=== PATIENT | female | born 1960 | race Caucasian/White ===

== ENCOUNTER 2019-10-13 15:26 | Outpatient (CLI) | payer BC, SELFPAY ==
--- NOTE | ~2019-10-13 | CT_ITS ---
EXAMINATION: CT chest wo con DATE: 10/13/2019 15:52 INDICATION: History of pulmonary embolism. Lung nodules. TECHNIQUE: Computed tomography (CT) of the chest was performed without intravenous contrast. The dose -length product was 203.45 mGy-cm. Automated exposure control and iterative reconstruction technique were employed. COMPARISON: CT dated 11/21/2018 FINDINGS: Heart size normal. No significant pleural or pericardial effusion. There is atherosclerosis . Mildly enlarged mediastinal lymph node measuring 9 mm, image 45. There is evidence for chronic gran ulomatous disease. There is bronchiectasis of the right middle and left upper lobes at the lingula. S table 5-6 mm fissural nodule on the right. 5 mm right upper lobe nodule, image 60, unchanged. There a re additional smaller nodules in the right upper and middle lobes which are not significantly changed . There are multiple healed rib fractures with adjacent pleural thickening/nodularity, likely scarrin g/pleural thickening. Stable coarse interstitial changes of the mid and lower lungs IMPRESSION: 1. Stable chest. No significant interval change. Stable pulmonary nodules measuring 6 mm or less, lik loni benign. Stable interstitial changes of the mid and lower lungs, likely scarring. Follow-up low do se CT chest in 12 months recommended. Reviewed, dictated and finalized at location A. IMPRESSION: 1. Stable chest. No significant interval change. Stable pulmonary nodules measu ring 6 mm or less, likely benign. Stable interstitial changes of the mid and lo wer lungs, likely scarring. Follow-up low dose CT chest in 12 months [facility]
== END 2019-10-13 15:27 ==
PROVIDERS: PCP Family Medicine Adolescent Medicine; Visit Provider Family Medicine Adolescent Medicine
DX: I26.99 Other pulmonary embolism without acute cor pulmonale (principal); R91.8 Other nonspecific abnormal finding of lung field
CPT/HCPCS: 71250

== ENCOUNTER → 2020-10-11 16:21 | Outpatient (CLI) | payer BC, SELFPAY ==
--- NOTE | ~2020-10-11 | XR_ITS ---
EXAMINATION: XR elbow RT min 3V DATE: 10/11/2020 16:39 INDICATION: Right elbow pain and catching. TECHNIQUE: Anteroposterior, two oblique and lateral views of the right elbow were obtained. COMPARISON: None. FINDINGS: There is a lucent lesion at the capitellum with loss of the well-defined linear cortical margin at th e articular surface. On the lateral projection with the elbow flexed there appears to be a small eber centic bone fragment projecting over the radiocapitellar joint line. Appearance suspicious for osteoc hondral lesion with displaced osteochondral fragment. No other suspected fractures identified. Again seen are several degenerative loose osteochondral bodies at both the anterior and posterior recess of the right elbow. No right elbow joint effusion. Osteoarthritis with nonuniform joint space narrowing which is of moderate severity at the ulnotrochlear articulation. IMPRESSION: 1. Appearance suggestive of a displaced capitellar osteochondral fragment. Could consider either CT o r MRI for more definitive determination as clinically indicated. 2. 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 Reviewed, dictated and finalized at location A. IMPRESSION: 1. Appearance suggestive of a displaced capitellar osteochondral fragment. Coul d consider either CT or MRI for more definitive determination as clinically ind icated. 2. 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
== END ==
PROVIDERS: PCP Family Medicine Adolescent Medicine; Visit Provider Family Medicine Adolescent Medicine
DX: M19.021 Primary osteoarthritis, right elbow (principal)
CPT/HCPCS: 73080

== ENCOUNTER → 2020-12-22 18:21 | Outpatient (CLI) | payer BC, SELFPAY ==
--- NOTE | ~2020-12-22 | XR_ITS ---
XR tibia fibula LT 2V DATE: 12/22/2020 19:05 INDICATION: Left mid to lower fibular pain TECHNIQUE: AP and lateral views COMPARISON: None FINDINGS: There are deformities of the distal tibial and fibular shafts and diametaphyseal areas, lik loni due to old healed fractures. No recent fracture or dislocation or apparent active bone destruction is noted. IMPRESSION: Probable fracture deformities of the distal tibia and fibula Reviewed, dictated and finalized at location A.
== END ==
PROVIDERS: PCP Family Medicine Adolescent Medicine; Visit Provider Family Medicine Adolescent Medicine
DX: M79.662 Pain in left lower leg (principal)
CPT/HCPCS: 73590

== ENCOUNTER 2021-05-02 15:30 | Emergency (ER) | payer BC, SELFPAY ==
[2021-05-02 15:36] VITALS: BP 136/76; PULSE 107; RESP 16; TEMP 37.5; O2SAT 98
--- NOTE | 2021-05-02 15:38 | ED.GENADULT ---
HPI - General Adult General Chief complaint: Upper Respiratory Infection Stated complaint: Sore throat Time Seen by Provider: 05/02/21 15:38 Source: patient and RN notes reviewed Mode of arrival: ambulatory History of Present Illness HPI narrative: 60-year-old female presented for complaint of left lower jaw pain and sore throat for about 3 days. She endorses occasional cough nonproductive. She denies associated sinus congestion, shortness of breath, wheezing, chest pain, nausea, vomiting, diarrhea, fever or chills. History of root canal and broken crown on the left molar. History of RA. Related Data Allergies Allergy/AdvReac Type Severity Reaction Status Date / Time No Known Allergies Allergy Verified 06/14/20 15:45 Review of Systems Review of Systems: CONSTITUTIONAL: Denies body aches, fever, chills ENT: Reports sore throat, Denies rhinorrhea, congestion, or otalgia. Denies dental pain stating had previous root canal CARDIOVASCULAR: Denies chest pain, palpitations RESPIRATORY: Reports cough denies dyspnea. SKIN: Denies rash, itching, or wounds. MUSCULOSKELETAL: Denies myalgia. NEUROLOGIC: Denies headache, numbness, tingling, or weakness. [facility] Past Medical History Medical History Arthritis Pulmonary embolism Family History Family History Father Lymphoma Sibling Breast cancer Social History Social History Smoking status: Never smoker Alcohol intake: never Substance use type: does not use Additional occupation/education comments: Customer Service Gender identity (if verbalized by the patient): Female Comments At time of signature, I have reviewed and agree with nursing past medical, surgical, social and family history unless otherwise noted. Please see nursing chart for further information. There is no relevant family history pertinent to the presenting complaint Exam Narrative: GENERAL: Appears in pain; Well-appearing, well-nourished, and in no acute distress. HEAD: Normocephalic, atraumatic. EYES: EOMI. No redness or drainage. Conjunctivae normal. ENT: Mucous membranes pink and moist. TMs with scarring bilaterally. Throat erythematous. Uvula midline. Left molar #17 with broken crown and mild swelling surrounding the tooth NECK: Normal AROM. Supple. left submandibular lymphadenopathy. CHEST: No respiratory distress. Clear to auscultation. HEART: Regular rate and rhythm. No murmur appreciated. ABDOMEN: Soft, nontender, nondistended, normal active bowel sounds. SKIN: Warm, dry, no rash. Normal skin turgor. NEURO: No focal deficits. Alert and oriented x3. Course Course Emergency Course: covid and strep negative Patient is aware of diagnosis, understands and agrees to treatment plan. Anticipatory guidance given. Patient agrees to follow-up as directed and is aware of reasons to seek care at the emergency department. Portions of this record may have been created with voice recognition software Level of Care: Express Care Visit Vital Signs Vital signs: Vital Signs Temperature 99.5 F 05/02/21 15:36 Pulse Rate 107 H 05/02/21 15:36 Respiratory Rate 16 05/02/21 15:36 Blood Pressure 136/76 05/02/21 15:36 Pulse Oximetry 98 05/02/21 15:36 Temperature 99.5 F 05/02/21 15:36 Pulse Rate 107 H 05/02/21 15:36 Respiratory Rate 16 05/02/21 15:36 Blood Pressure 136/76 05/02/21 15:36 Pulse Oximetry 98 05/02/21 15:36 Medical Decision Making Differential Diagnosis Differential Diagnosis: DDx: covid, viral infection, dentalgia, dental fracture, dental caries, periapical abscess, lymphadenopathy, strep, tonsillar abscess, pharyngitis, OM Vital Signs Vital Signs: Vital Signs Temperature 99.5 F 05/02/21 15:36 Pulse Rate 107 H 05/02/21 15:36 Respiratory Rate 16 05/02/21 15:36 Blood Pr
== END 2021-05-02 16:27 | disposition home or self-care (01) ==
PROVIDERS: Emergency Provider Nurse Practitioner Family; PCP Family Medicine Adolescent Medicine
DX: K04.7 Periapical abscess without sinus (principal); Z20.822 Contact with and (suspected) exposure to COVID-19; M19.90 Unspecified osteoarthritis, unspecified site; Z86.711 Personal history of pulmonary embolism; M06.9 Rheumatoid arthritis, unspecified
CPT/HCPCS: 87081; 87426; 87880; 99213; C9803; G0463

== ENCOUNTER → 2021-12-14 14:59 | Outpatient (CLI) | payer BC, SELFPAY ==
--- NOTE | ~2021-12-14 | XR_ITS ---
EXAMINATION: XR hand LT min 3V, XR hand RT min 3V, XR wrist LT 2V, XR wrist RT 2V DATE: 12/14/2021 16:12 INDICATION: Rheumatoid arthritis TECHNIQUE: 1. Posteroanterior and lateral views of the left wrist were obtained. 2. Dorsal palmar, oblique and lateral views of the left hand were obtained. 3. Posteroanterior and lateral views of the right wrist were obtained. 4. Dorsal palmar, oblique and lateral views of the right hand were obtained. COMPARISON: None. FINDINGS: Old healed fracture of the distal right radial diaphysis with volar plate and screw fixation. Normal alignment at the bilateral hands and wrists. Polyarticular osteoarthritis at the bilateral hands and wrists contrast by nonuniform joint space narrowing or small marginal osteophytes. This is severe at the left first carpometacarpal joint, moderate severity at the left wrist and multiple bilateral dist al interphalangeal joints and mild at the right first carpal metacarpal, bilateral distal radioulnar, triscaphe right metacarpophalangeal joints and remaining predominantly proximal interphalangeal join ts. No erosions identified to suggest an inflammatory arthritis. Small heterotopic ossicle next along the left extensor carpi ulnaris groove of the distal ulna. Soft tissues are unremarkable. IMPRESSION: 1. Polyarticular osteoarthritis at the bilateral hands and wrists, severe at the left first carpometa carpal joint and otherwise mild to moderate . No erosions to suggest an inflammatory arthritis. 2. Old healed right radial diaphyseal fracture with plate and screw fixation. Reviewed, dictated and finalized at location A. IMPRESSION: 1. Polyarticular osteoarthritis at the bilateral hands and wrists, severe at th e left first carpometacarpal joint and otherwise mild to moderate . No erosions to suggest an inflammatory arthritis. 2. Old healed right radial diaphyseal fracture with plate and screw fixation. IMPRESSION: 1. Polyarticular osteoarthritis at the bilateral hands and wrists, severe at th e left first carpometacarpal joint and otherwise mild to moderate . No erosions to suggest an inflammatory arthritis. 2. Old healed right radial diaphyseal fracture with plate and screw fixation. IMPRESSION: 1. Polyarticular osteoarthritis at the bilateral hands and wrists, severe at th e left first carpometacarpal joint and otherwise mild to moderate . No erosions to suggest an inflammatory arthritis. 2. Old healed right radial diaphyseal fracture with plate and screw fixation.
--- NOTE | ~2021-12-14 | XR_ITS ---
EXAMINATION: XR elbow RT 2V DATE: 12/14/2021 16:12 INDICATION: Rheumatoid arthritis TECHNIQUE: Anteroposterior and lateral views of the right elbow were obtained. COMPARISON: 12/05/2015 and 10/11/2020 FINDINGS: Alignment is normal. No fracture or joint effusion. 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 Median sternotomy is an irregular cortical contour to the articular surface of the capitellum suggesting an old displa curry are collapsed osteochondral lesion. Soft tissues are unremarkable. IMPRESSION: 1. No significant interval change in moderate osteoarthritis at the right elbow potentially secondary to chronic collapse or displaced capitellar osteochondral lesion. Reviewed, dictated and finalized at location A. IMPRESSION: 1. No significant interval change in moderate osteoarthritis at the right elbow potentially secondary to chronic collapse or displaced capitellar osteochondra l lesion.
--- NOTE | ~2021-12-14 | XR_ITS ---
EXAMINATION: XR foot LT min 3V, XR foot RT min 3V DATE: 12/14/2021 16:12 INDICATION: Rheumatoid arthritis TECHNIQUE: 1. Dorsoplantar, two oblique and lateral views of the left foot were obtained. 2. Dorsoplantar, two oblique and lateral views of the right foot were obtained. COMPARISON: Left tibia/fibular radiographs dated 01/01/2021 and right ankle radiographs dated 05/30/19 16 FINDINGS: Again seen are old healed fractures of the distal left tibia and fibula. Unchanged pin fixation exten ding across the right talus the neck of which appears shortened suggests this may be for fixation of an old fracture. There is fusion across the right subtalar joint. No acute fractures identified. Righ t hallux valgus. Polyarticular osteoarthritis characterized by nonuniform joint space narrowing and/o r marginal osteophytes at the bilateral feet and ankles. This of moderate severity at the right tibio talar, right talonavicular, bilateral first metatarsophalangeal and several of the bilateral tarsomet atarsal joints. Mild osteoarthritis at the remaining joints the mid and forefeet. No erosions to sugg est inflammatory arthritis. Moderate sized left plantar calcaneal spur. IMPRESSION: 1. Moderate polyarticular osteoarthritis at the bilateral feet and ankles. No erosions to suggest inf lammatory arthritis such as rheumatoid. 2. Unchanged old postoperative and posttreatment changes as detailed above. Reviewed, dictated and finalized at location A. IMPRESSION: 1. Moderate polyarticular osteoarthritis at the bilateral feet and ankles. No e rosions to suggest inflammatory arthritis such as rheumatoid. 2. Unchanged old postoperative and posttreatment changes as detailed above.
--- NOTE | ~2021-12-14 | XR_ITS ---
EXAMINATION: XR elbow LT 2V DATE: 12/14/2021 16:12 INDICATION: Rheumatoid arthritis TECHNIQUE: Anteroposterior, two oblique and lateral views of the left elbow were obtained. COMPARISON: None. FINDINGS: Alignment is normal. No fracture or joint effusion. Joint spaces are normal. No erosions to suggest a n inflammatory arthritis. Soft tissues are unremarkable. IMPRESSION: 1. Negative left elbow radiographs. Reviewed, dictated and finalized at location A.
== END ==
PROVIDERS: PCP Family Medicine Adolescent Medicine; Visit Provider Internal Medicine Rheumatology
DX: M35.00 Sjogren syndrome, unspecified (principal); M06.9 Rheumatoid arthritis, unspecified; M20.11 Hallux valgus (acquired), right foot; M19.072 Primary osteoarthritis, left ankle and foot; M19.071 Primary osteoarthritis, right ankle and foot; M18.0 Bilateral primary osteoarthritis of first carpometacarpal joints; M19.042 Primary osteoarthritis, left hand; M19.041 Primary osteoarthritis, right hand; M19.021 Primary osteoarthritis, right elbow; M24.021 Loose body in right elbow; M19.032 Primary osteoarthritis, left wrist; M19.031 Primary osteoarthritis, right wrist
CPT/HCPCS: 73070; 73100; 73130; 73630

== ENCOUNTER → 2022-09-26 14:44 | Outpatient (CLI) | payer BC, SELFPAY ==
--- NOTE | ~2022-09-26 | XR_ITS ---
EXAMINATION: XR foot RT 2V INDICATION: Swelling at the base of the fifth metatarsal TECHNIQUE: Two views of the right foot are obtained. COMPARISON: 12/14/2021 FINDINGS: Again seen is prior surgical change in the talus. There is moderate polyarticular arthritis without significant change since the comparison examination. There is soft tissue swelling near the base of the fifth metatarsal. No definite fracture is identified. IMPRESSION: 1. Soft tissue swelling near the base of the fifth metatarsal without acute osseous abnormality ident ified. Reviewed, dictated and finalized at location B. IMPRESSION: 1. Soft tissue swelling near the base of the fifth metatarsal without acute oss eous abnormality identified.
== END ==
PROVIDERS: PCP Family Medicine Adolescent Medicine; Visit Provider Family Medicine Adolescent Medicine
DX: M25.474 Effusion, right foot (principal)
CPT/HCPCS: 73620

== ENCOUNTER 2023-01-12 16:20 | Emergency (ER) | payer BC, SELFPAY ==
--- NOTE | 2023-01-12 16:24 | ED.BACK ---
HPI - Back Pain/Injury General Chief Complaint: Back Pain/Injury Stated Complaint: Back pain Time Seen by Provider: 01/12/23 16:31 Source: patient, RN notes reviewed and old records reviewed Mode of arrival: ambulatory Limitations: no limitations History of Present Illness HPI Narrative: 62-year-old female presents to the [facility] with right flank pain symptoms started today. Patient denies any abdominal pain. No chest pain. Denies urinary symptoms, no frequency urgency or burning. Denies fevers. Changing positions, twisting, bending does not make the pain better or worse. States the pain is pretty constant. Denies any injury. Denies any heavy pushing pulling or lifting. Patient denies anything that makes it better or worse. Has tried heat and cooled to the area, no relief. Denies any numbness or tingling in extremities. Denies any loss retention of bowel or bladder. No midline tenderness. Walks with a normal gait. No saddle anesthesia MD elicited complaint: back pain Onset (ago): hour(s) Treatments prior to arrival: cold therapy and heat therapy Related Data Allergies Allergy/AdvReac Type Severity Reaction Status Date / Time No Known Allergies Allergy Verified 01/12/23 16:33 Review of Systems Review of Systems: All systems reviewed & are unremarkable except as noted in HPI and below Constitutional: Constitutional: Reports no additional constitutional complaints Eyes: Eyes: Reports no additional eye complaints ENT: Reports system reviewed and no additional complaints, except as documented Cardiovascular: Cardiovascular: Reports no additional cardiovascular complaints, Denies chest pain and Denies dyspnea Respiratory: Respiratory: Reports no additional respiratory complaints, Denies chest congestion, Denies cough and Denies dyspnea Gastrointestinal: Gastrointestinal: Reports no additional gastrointestinal complaints, Denies abdominal pain, Denies nausea and Denies vomiting Musculoskeletal: Musculoskeletal: Reports as per HPI and Denies numbness Integumentary/Breasts: Skin/Breast: Reports system reviewed and no additional complaints, except as docu Neurologic: Reports system reviewed and no additional complaints, except as documented Psychiatric: Psychiatric: Reports no additional psychiatric complaints Allergic/Immunologic: Allergic/Immunologic: Reports no additional allergic/immunologic complaints [facility] Past Medical History Medical History (Updated 01/12/23 @ 16:43 by Socorro Hamm, [employer]GER) Hx pulmonary embolism 12/04 Pulmonary embolism 12/04 Family History Family History Father Lymphoma Sibling Breast cancer Mother Cerebrovascular accident Social History Social History Smoking status: Never smoker Second hand tobacco smoke exposure: No Alcohol intake: never Substance use: never Substance use type: does not use Lack of Transportation: No Lack of Food: Never True Current Housing: I Have Housing Concerned About Future Housing: No Difficulty Paying Gas/Electric Bills: Decline to Answer Difficulty Paying for Meds: No Currently Unemployed: No Education: Associate Degree Difficulty w/ Childcare or Family Care: No Living arrangements: alone Occupation/Education: occupation Additional occupation/education comments: Customer Service Gender identity (if verbalized by the patient): Female Sexual Orientation (if Verbalized by the Patient): Straight or Heterosexual Spiritual care concerns: No Agree to blood products: Yes Comments At the time of my signature, I reviewed and agree with the nursing past medical, surgical, social, and family history. There is no relevant family history pertinent to the patient complaint. Exam Const: General: cooperative, healthy appearing, comfortable, no acute distress, well developed, alert and well nourished Nutr
[2023-01-12 16:32] VITALS: BP 173/95; PULSE 98; RESP 16; TEMP 36.6; O2SAT 98
== END 2023-01-12 16:46 | disposition home or self-care (01) ==
PROVIDERS: Emergency Provider Nurse Practitioner; PCP Family Medicine Adolescent Medicine
DX: R10.9 Unspecified abdominal pain (principal); Z86.711 Personal history of pulmonary embolism
CPT/HCPCS: 81003; 87086; 99213; G0463

== ENCOUNTER 2023-01-14 02:05 | Emergency (ER) | payer BC, SELFPAY ==
--- NOTE | ~2023-01-14 | CT_ITS ---
EXAMINATION: CT abdomen pelvis w con DATE: 01/14/2023 03:30 INDICATION: Right flank pain. TECHNIQUE: Computed tomography (CT) of the abdomen and pelvis was performed with 100 mL Omnipaque 350 intravenous contrast. Automated exposure control and iterative reconstruction technique were employe d. The dose-length product was 338.35 mGy-cm. COMPARISON: CT abdomen and pelvis 03/11/2013 FINDINGS: The visualized portions of the lung bases demonstrate mild atelectasis and chronic lung dis ease. No pleural effusion. The heart size is normal. No pericardial effusion. The liver, gallbladder, spleen, pancreas, adrenal glands, and kidneys are normal. There are no dilated loops of bowel. The a ppendix is normal. There are no pathologically enlarged lymph nodes. Aortic atherosclerosis is noted. There is no free intraperitoneal fluid. There is internal fixation of right femur. There is mild lum bar spondylosis. IMPRESSION: 1. No etiology for the patient's symptoms. Reviewed, dictated and finalized at location E.
[2023-01-14 02:11] VITALS: BP 184/105; PULSE 114; RESP 19; TEMP 36.3; O2SAT 96
--- NOTE | 2023-01-14 02:42 | ED.GENADULT ---
HPI - General Adult General Chief complaint: Back Pain/Injury <DANIELA Marroquin Last Filed: 01/14/23 02:48> Stated complaint: Right flank pain/right back pain <DANIELA Marroquin Last Filed: 01/14/23 02:48> Time Seen by Provider: 01/14/23 02:36 <DANIELA Marroquin Last Filed: 01/14/23 02:48> Source: patient <DANIELA Marroquin Last Filed: 01/14/23 02:48> Mode of arrival: ambulatory <DANIELA Marroquin Last Filed: 01/14/23 02:48> Limitations: no limitations <DANIELA Marroquin Last Filed: 01/14/23 02:48> History of Present Illness HPI narrative: This is a 62-year-old female who presents to the ED with chief complaint of right flank pain for the past couple of days. She was seen at urgent care yesterday and was told she had a bloody urinalysis and that she may need CT scan for kidney stones but patient wanted to try a muscle relaxer for possible musculoskeletal pain first. She reports the pain is progressed and is now an 8 out of 10 in the right flank. States is hard to get in a comfortable position. She reports increased urinary output but she has been drinking lots of water. Denies hematuria or dysuria. Endorses 1 episode of vomiting. Denies fevers, chills, problems with bowel movements, chest pain, shortness of breath, cough. <DANIELA Marroquin Last Filed: 01/14/23 02:48> Related Data Allergies/adverse reactions: Allergies Allergy/AdvReac Type Severity Reaction Status Date / Time No Known Allergies Allergy Verified 01/14/23 02:15 <DANIELA Marroquin Last Filed: 01/14/23 02:48> Review of Systems Review of Systems: All systems as dictated in HPI <DANIELA Marroquin Last Filed: 01/14/23 02:48> [facility] Past Medical History Medical History: Medical History (Updated 01/14/23 @ 02:47 by Diogenes Casarez PA-C) Hx pulmonary embolism 12/04 Pulmonary embolism 12/04 <Diogenes Casarez PA-C - Last Filed: 01/14/23 02:48> Family History Family History: Family History Father Lymphoma Sibling Breast cancer Mother Cerebrovascular accident <Diogenes Casarez PA-C - Last Filed: 01/14/23 02:48> Social History Social History: Social History Smoking status: Never smoker Second hand tobacco smoke exposure: No Alcohol intake: never Substance use: never Substance use type: does not use Lack of Transportation: No Lack of Food: Never True Current Housing: I Have Housing Concerned About Future Housing: No Difficulty Paying Gas/Electric Bills: Decline to Answer Difficulty Paying for Meds: No Currently Unemployed: No Education: Associate Degree Difficulty w/ Childcare or Family Care: No Living arrangements: alone Occupation/Education: occupation Additional occupation/education comments: Customer Service Gender identity (if verbalized by the patient): Female Sexual Orientation (if Verbalized by the Patient): Straight or Heterosexual Spiritual care concerns: No Agree to blood products: Yes <Diogenes Casarez PA-C - Last Filed: 01/14/23 02:48> Exam Narrative: GENERAL: Appears in renal colic HEAD: Normocephalic, atraumatic. EYES: PERRLA and EOMI. ENT: Nares clear, no rhinorrhea or epistaxis. Mucous membranes moist. Oropharynx without tonsillar hypertrophy exudate or other lesions. NECK: Supple. No adenopathy or masses. CHEST: No respiratory distress. Clear to auscultation. No wheezes rales or rhonchi HEART: Regular rate and rhythm. No murmur heard. Normal peripheral pulses. ABDOMEN: Significant right flank tenderness. Negative left flank tenderness. Soft, otherwise nontender, nondistended, normal active bowel sounds. MSK: Normal range of motion. No edema. SKIN: Warm, dry, no rash. NEURO: Alert and oriented x3. No focal deficits. PSYCH: Normal mood and affect. <Diogenes Casarez
[2023-01-14 02:44] VITALS: BP 167/94; PULSE 89; RESP 16; O2SAT 97
[2023-01-14] MEDS: MORPHINE SULFATE (*CRX) 4 MG/ML INJ IV PUSH ×2 (02:48→03:58)
[2023-01-14] MEDS: ONDANSETRON INJ 4 MG/2 ML VIAL IV PUSH (02:48)
[2023-01-14 02:52] LABS: Basophils Percent Auto 0.5 % (0.2-1.2); Eosinophils Absolute Auto 0.1 K/mm3 (0-0.3); Eosinophils Percent Auto 1.3 % (0-4.4); Hemoglobin 15.5 g/dL (12.0-15.0); Immature Granulocyte Absolute 0.04 K/mm3 (0.00-0.031); Immature Granulocyte Percent A 0.5 % (0-0.5); Lymphocytes Absolute Auto 1.78 K/mm3 (0.9-3.2); Lymphocytes Percent Auto 22.7 % (18.3-44.2); Mean Corpuscular Hemoglobin 29.6 pg (26-34); Mean Corpuscular Volume 89.7 fl (80-100); Mean Platelet Volume 8.7 fl (7.4-10.4); Monocytes Absolute Auto 0.9 K/mm3 (0.1-0.6); Monocytes Percent Auto 10.8 % (2.6-8.5); Neutrophils Percent Auto 64.2 % (45.5-73.1); Platelet Count Result 273 k/mm3 (150-375); Red Blood Count 5.24 M/mm3 (4.2-5.4); Red Cell Distribution Width 12.6 % (11.5-14.5); White Blood Count 7.9 K/mm3 (4.5-10.0)
[2023-01-14 03:04] LABS: Alanine Aminotransferase 35 U/L (6-35); Albumin Level 4.9 g/dL (3.5-5.1); Alkaline Phosphatase 80 U/L (38-126); Anion Gap 7 mmol/L (8-16); Appearance Urine Clear (Clear); Aspartate Amino Transferase 32 U/L (14-36); Bacteria Urine None Seen /hpf; Bilirubin Urine Negative (Negative); Bilirubin,Total 0.8 mg/dL (0.2-1.3); Blood Urea Nitrogen 15 mg/dL (7-17); Blood Urine 2+ (Negative); Calcium 9.3 mg/dL (8.4-10.2); Carbon Dioxide 27 mmol/L (22-30); Chloride 101 mmol/L (98-107); Color Urine Yellow (Yellow); Estimated CRCL calculation 67 ml/min; Estimated Glomerular Filt Rate > 60; Glucose 139 mg/dL (65-110); Glucose Urine UA Negative (Negative); Ketones Urine Negative (Negative); Leukocyte Esterase Ur 1+ LEU/UL (Negative); Lipase 174 U/L (23-300); Nitrate Urine Negative (Negative); Potassium 4.1 mmol/L (3.4-5.0); Protein Urine Negative (Negative); RBC Urine 0-2 /hpf (0-2); Sodium 135 mmol/L (137-145); Specific Grav Ur 1.016 (1.001-1.035); Squamous Epithelial Cell Urine None seen /hpf (Few); Urobilinogen Urine 0.2 mg/dL (<2.0); pH Urine 5.5 (5.0-9.0)
[2023-01-14 03:23] LABS: Add Urine Microscopic? YES
[2023-01-14 03:35] VITALS: BP 156/89; PULSE 86; RESP 16; O2SAT 96
[2023-01-14 04:59] VITALS: PULSE 79; RESP 14; O2SAT 95
[2023-01-14] MEDS: LIDOCAINE 5% PATCH 1 PATCH TRANSDERM (05:38)
[2023-01-14] MEDS: KETOROLAC 30 MG/ML VIAL (*BKC) IV PUSH (05:38)
[2023-01-14 05:43] VITALS: BP 155/91; PULSE 72; RESP 18; O2SAT 96
[2023-01-14 06:49] VITALS: BP 128/77; PULSE 71; RESP 16; O2SAT 95
== END 2023-01-14 06:49 | disposition home or self-care (01) ==
PROVIDERS: Physician Assistant; Emergency Provider Emergency Medicine; PCP Family Medicine Adolescent Medicine
DX: R10.9 Unspecified abdominal pain (principal); M54.9 Dorsalgia, unspecified
CPT/HCPCS: 36415; 74177; 80053; 81001; 83690; 85025; 87086; 87088; 96374; 96375; 96376; 99284; A9270; J1885; J2270; J2405; Q9967

== ENCOUNTER → 2023-01-17 11:38 | Outpatient (CLI) | payer BC, SELFPAY ==
--- NOTE | ~2023-01-17 | CT_ITS ---
EXAMINATION:CT diagnostic chest wo con DATE: 01/17/2023 12:05 INDICATION: Other nonspecific abnormal finding in lung field. TECHNIQUE: Computed tomography (CT) of the chest was performed without intravenous contrast. Automate d exposure control and iterative reconstruction technique were employed. The dose-length product (DLP ) was 211.98 mGy-cm. COMPARISON: Chest CT 10/13/2019 FINDINGS: There is mild scarring at the lung apices. Calcified right lung nodules are consistent with old granulomatous disease. There is mild bronchiectasis in the inferior lungs. There are is chronic septal thickening in the lungs with a lower lung predominance and right-sided predominance. No honeyc ombing. There are a few stable nodules in right lung measuring up to 5 mm. No pleural effusion. The h eart size is normal. No pericardial effusion. There is diffuse hepatic steatosis. There is chronic an terior wedging of multiple thoracic vertebral bodies. There is moderate thoracic spondylosis. There a re old healed right rib fractures. IMPRESSION: 1. Stable pulmonary nodules, likely benign. 2. Mild chronic lung disease. Reviewed, dictated and finalized at location E.
== END ==
PROVIDERS: PCP Family Medicine Adolescent Medicine; Visit Provider Nurse Practitioner Family
DX: R91.8 Other nonspecific abnormal finding of lung field (principal); J98.4 Other disorders of lung
CPT/HCPCS: 71250

== ENCOUNTER 2024-05-14 14:21 | Outpatient (CLI) | payer MEDICARE, SELFPAY | END 2024-05-14 14:22 | disposition home or self-care (01) | LOC: MICIMG 14:23 | PROVIDERS: PCP Family Medicine; Visit Provider Family Medicine | DX: S22.41XS Multiple fractures of ribs, right side, sequela (principal); X58.XXXS Exposure to other specified factors, sequela; M54.6 Pain in thoracic spine | CPT/HCPCS: 71111; 72072 ==

== ENCOUNTER 2024-08-18 21:42 | Emergency (ER) | payer MEDICARE, SELFPAY ==
--- NOTE | ~2024-08-18 | XR_ITS ---
XR hand LT min 3V Ordering provider: Gema Main MD History: . fall; open lacs to palm side of hand . Comparison: None. FINDINGS: BONES: No acute fracture or dislocation. JOINT SPACES: Narrowing of the proximal and distal interphalangeal joints. Osteoarthritic changes of the first carpometacarpal joint. Narrowing of the radiocarpal joint. SOFT TISSUES: Unremarkable. IMPRESSION: No acute osseous abnormality left hand. Polyarticular osteoarthritic changes. Reviewed, dictated and finalized at location A.
--- OUTSIDE RECORDS SUMMARY | 2024-08-18 21:44 | XMS_ITS | Encounter Summary ---
Author Organization [facility] Address [address] [place] [address] Care Team Providers Care Reel Operator Name Role Phone Ramon Dooley MD Primary Care Provider + Reason for Visit * Reason Onset Date Comments Order 08/14/2022 Encounter Details Date Type Department Care Team (Late st Contact Info) Description 08/14/2022 Telephone [facility] - Centralized Scheduling [address] [place] [address] Kamar Olivia MD [address] [facility] [address] Order Social History Tobacco Use Types Packs/Day Years Used Date Smoking Tobacco: Some Days Smokeless Tobacco: Never Alcohol Use Standard Drinks/Week Comments No 0 (1 standard drink = 0.6 oz pur e alcohol) PHQ-2 Answer Date Recorded PHQ2 TOTAL SCORE 0 05/14/2022 Comments No Sex and Gender Information Value Date Recorded Sex Assigned at Not on file Legal Sex Female 6:12 AM SECURITY MANAGEMENT SPECIALIST Gender Identity Not on file Sexual Orientation Not on file documented as of this encounter Miscellaneous Notes * Telephone Encounter - Kimberley Green LPN - 08/14/2022 9:59 AM CDT Images from the original note were not included. Magi Arellano Clinical Staff 31 minutes ago (9:30 AM) RA Pt is calling about her meds and have questions and wants the Office to give her a call. Please advise Shefali Oneida [phone] Magi Arellano Spoke with Patient. She has had on-going issues with transportation. NOV 08/27/22 at 1p. Ideally, she realizes that she should have XRs and labs completed prior to this appointment, however, transportation is an issue for her. She has yet to obtain those previous orders. Her question is would it be ok to get these after her 1pm appointment downstairs at [facility] to ensure they are completed and we recei ve the results (which has been a problem in the past with [facility], specifically.) Secondly, she has failed to ask why she was not continued on her infusion, Orencia? She feels like the pills (SSZ, HCQ and diclofenac) are working as well and doesn't understand why you chose to prescribe the medications over the infusion? Call back # [phone], she works from home. documented in this encounter Plan of Treatment Not on file documented as of this encounter Visit Diagnoses Not on filedocumented in this encounter Care Teams Reel Operator Relationship Specialty Start Date End Date Ramon Dooley MD [address] [place] [id number] PCP - General Family Medicine 08/27/22 documented as of this encounter
--- OUTSIDE RECORDS SUMMARY | 2024-08-18 21:44 | XMS_ITS | Clinical Summary ---
Author Organization [facility] [employer] Address [address] [place] [address] Care Team Providers Care Glass Decorator Name Role Phone Ramon Dooley MD Primary Care Provider + Source Comments [facility] [employer],non-owned Affiliates and Associated Physician Practices is amultiple site organization consisting of ambulatory clinics and hospital sitesin [place], [place], [place] and [place]. This disclosure is being madepursuant to the Care Everywhere program and may not contain all information available regarding this patient. Last updated 17.[facility] [employer] Allergies No known active allergies Medications * Be aware that medications may not be up to date on this document. Alwaysverify current medications with the patient. diclofenac sodium EC (Voltaren) 75 MG tablet Take 1 (one) tablet by mouth 2 times daily 2 Active hydroxychloroqu ine (Plaquenil) 200 MG tablet Take 1.5 (one and one-half) tablets by mouth once daily 90 tablet 3 3 Active Additional Information Patient taking differently: 200 mgOral DAILY, Reported on 05/14/2022 sulfaSALAzine (Azulfidine) 500 MG tablet Take 2 (two) tablets by mouth 2 times daily 120 tablet 3 3 Active Immunizations Immunization Administration Dates Next Due Covid BlueConic primary monoval ent 12+ yr 0.3mL Purple cap 07/06/2020,06/08/2020 Family History Medical History Relation Name Comments Cancer - Other Father CVA Mother Asthma Neg Hx Autoimmune Disease Neg Hx Bipolar Disorder Neg Hx Cancer - Breast Neg Hx Cancer - Colon Neg Hx Cancer - Ovarian Neg Hx Cancer - Pancreatic Neg Hx Cancer - Prostate Neg Hx Depression Neg Hx Eczema Neg Hx Hypertension Neg Hx Migraine Neg Hx Osteoporosis Neg Hx Seizures Neg Hx Sudd. <30 Neg Hx Thyroid Disease Neg Hx Ulcerative Colitis Neg Hx Relation Name Status Comments Father Mother Social History Tobacco Use Types Packs/Day Years Used Date Smoking Tobacco: Some Days Smokeless Tobacco: Never Tobacco Cessation:Ready to Q uit: No; Counseling Given: No Alcohol Use Standard Drinks/Week Comments No 0 (1 standard drink = 0.6 oz pur e alcohol) PHQ-2 Answer Date Recorded PHQ2 TOTAL SCORE 0 05/14/2022 Comments No Sex and Gender Information Value Date Recorded Sex Assigned at Not on file Legal Sex Female 6:12 AM OIL SPRAYER Gender Identity Not on file Sexual Orientation Not on file Last Filed Vital Signs Vital Sign Reading Time Taken Comments Blood Pressure 128/82 08/27/2022 12:55 PM CDT Pulse 96 08/27/2022 12:55 PM CDT Temperature 36.5 C (97.7 F) 08/27/2022 12:55 PM CDT Respiratory Rate 20 03/15/2018 11:13 AM OIL SPRAYER Oxygen Saturation 98% 12/14/2021 10:13 AM CDT Inhaled Oxygen Concentration - - Weight 62.6 kg (138 lb) 08/27/2022 12:55 PM CDT Height 160 cm (5' 3) 08/27/2022 12:55 PM CDT Body Mass Index 24.45 08/27/2022 12:55 PM CDT Plan of Treatment Health Maintenance Due Date Last Done Comments BONE DENSITY TESTING 1960 COLOGUARD (AGES 45-75) - COL ON CA SCREENING 1958 COLON MONITORING 1958 COLONOSCOPY - COLON CA SCREENING 1958 CT COLONOGRAPHY - COLON CA SCREENING 1958 Colorectal Cancer Screening 1958 FIT - COLON CA SCREENING 1958 FLEX SIG - COLON CA SCREENING 1958 LIPID TESTING 1958 MAMMOGRAM 1958 DTAP/TDAP/TD VACCINES (1 - Tdap) 1977 PNEUMOCOCCAL VACCINE 50+ (1 of 2 - PCV) 1977 ZOSTER VACCINE (1 of 2) 2008 COVID-19 VACCINE (3 2023-2 5 season) 2023 07/06/2020, 06/08/2020 DEPRESSION SCREENING 03/18/2024 05/14/2022 INFLUENZA VACCINE (Season Ended) 2024 Respiratory Syncytial Virus (RSV) Vaccine Pt: or over 60 yrs (1 - 1-dose 75+ series) 2033 HEPATITIS C SCREENING Completed 04/20/2022 , 06/07/2020 HEPATITIS B VACCINE Aged Out No longe r eligible based on patient's age to complete this topic HIB VACCINE Aged Out No longer eligi ble based on patient's age to complete this topic HPV VACCINE Aged Out No longer eligi ble based on patient's age to complete this topic MENINGOCOCCAL (Group B) VACCINE SHARED DECISION-MAKING Aged Out No longer eligible based on patient's age to complete this topic MENINGOCOCCAL GROUPS A/C/Y/W VACCINE Aged Out No longer eligible b ased on patient's age to complete this topic Procedures Procedure Name Priority Date/Time Associated Diagnosis Comments HEPATITIS C ANTIBODY Routine 04/20/2022 4:05 PM OIL SPRAYER Rheumatoid arthritis involving multiple joints Sicca, unspecified type Long-term use of immunosuppressant medication from Last 3 Months or Most Recently Relevant to Health Maintenance Results * HEPATITIS C ANTIBODY (04/20/2022 4:05 PM OIL SPRAYER) Hepatitis C Antibody <0.1 0.0 - 0.9 s/co ratio [facility] INSURANCE BILL Comment: Negative: < 0.8 Indeterminate: 0.8 - 0.9 Positive: > 0.9 . HCV antibody alone does not differentiate between previous resolved infection and active infection. The CDC and current clinical guidelines recommend that a positive HCV antibody result be followed up with an HCV RNA test to support the diagnosis of acute HCV infection. [facility] offers Hepatitis C Virus (HCV) RNA, Diagnosis, NICK (699650) and Hepatitis C Virus (HCV) Antibody with reflex to Quantitative Real-time PCR ([id number]). Blood BLOOD SPECIMEN / Unknown 04/20/2022 4:05 PM OIL SPRAYER 04/20/2022 Narrative Resulting Agency Comment Lab Testing performed at: [facility] [address] [facility] [id number] Lenin Conner MD LAB - CHEMISTRY ORDERABLES Final Result [facility] INSURANCE BILL [address] [place] [address] from Last 3 Months or Most Recently Relevant to Health Maintenance Insurance [facility] [place] [address] Care Teams Glass Decorator Relationship Specialty Start Date End Date Ramon Dooley MD [address] [place] [address] [address] [place] [address] PCP - General Family Medicine 08/27/22
--- OUTSIDE RECORDS SUMMARY | 2024-08-18 21:44 | XMS_ITS | Clinical Summary ---
Author Organization [facility] Address [address] [facility] Attn: Epic Prelude ADT VIRY [place] [address] Care Team Providers Care Visual Supervisor Name Role Phone Unavailable Primary Care Provider Unavailabl e Social History Tobacco Use Types Packs/Day Years Used Date Smoking Tobacco: Never Assessed Comments Unknown Sex and Gender Information Value Date Recorded Sex Assigned at Not on file Legal Sex Female 4:31 AM MARKER MACHINE Gender Identity Not on file Sexual Orientation Not on file Plan of Treatment Health Maintenance Due Date Last Done Comments DTAP/TDAP/TD VACCINES (1 - Tdap) 1977 BREAST CANCER SCREENING 1998 COLORECTAL SCREENING 08/06/2003 Colorectal Cancer Screening 08/06/2003 FIT-DNA Q 3 years 08/06/2003 FIT/FOBT Q 1 year 08/06/2003 Flex Sig/CT Colonography Q 5 years 08/06/2003 PNEUMOCOCCAL VACCINE 50+ YEARS (1 of 1 - PCV) 08/06/19 09 ZOSTER VACCINE (1 of 2) 2008 OSTEOPOROSIS SCREENING 08/06/2023 INFLUENZA VACCINE (#1) 2023 RSV VACCINE (60+ or ) (1 - 1-dose 75+ series) 2033
--- OUTSIDE RECORDS SUMMARY | 2024-08-18 21:44 | XMS_ITS | Clinical Summary ---
Author Organization [facility] [address] Address [address] [place] [address] Phone Care Team Providers Care Longitudinal Float Operator Name Role Phone Ramon Dooley MD Primary Care Prov ider Allergies No known active allergies Medications rivaroxaban (XARELTO) 20 mg tablet 20 mg daily Active diclofenac DR (VOLTAREN) 75 mg EC tablet Take 1 tablet (75 mg total) by mouth 2 (two) times a day 2 Active hydrOXYchloroQU INE (PLAQUENIL) 200 mg tablet Take 1.5 tablets (300 mg total) by mouth daily 3 Active sulfaSALAzine (AZULFIDINE) 500 mg tablet Take 500 mg by mouth 4 (four) times a day Active lidocaine (LIDODERM) 5 % Place 1 patch on the skin daily as needed for pain for up to 15 days Remove & discard patch within 12 hours or as directed by . 15 patch 3 Active methylPREDNISol one (MEDROL DOSEPACK) 4 mg Dosepack Take as directed on package 1 packet 3 Active Additional Information Patient not taking.Reported on 03/03/2023 baclofen (LIORESAL) 10 mg tablet TAKE 1/2 TO 1 TABLET BY MOUTH TWICE DAILY NEEDED FOR MUSCLE PAIN OR PAIN 3 Active cyclobenzaprine (FLEXERIL) 10 mg tablet Take 1 tablet (10 mg total) by mouth 3 (three) times a day as needed for muscle spasms 3 Active HYDROcodone-octaviano taminophen (NORCO) 5-325 mg per tablet Take 1 tablet by mouth 3 (three) times a day as needed for pain 3 Active Paxlovid tablets,dose pack tablets in a dose pack TAKE 3 TABLETS TOGETHER (TWO 150 MG NIRMATRELVIR TABLETS AND ONE 100 MG RITONAVIR TABLET) BY MOUTH TWICE DAILY FOR 5 DAYS. 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 SOB (shortness of breath) on exertion 12/09/2019 Dyslipidemia 12/09/2019 Rheumatoid arthritis 12/09/2019 Atypical chest pain 12/09/2019 Low back pain 12/16/2015 Overview (06/21/2016): Low back pain Medical History Medical History Date Comments Pneumonia Pulmonary embolism (HCC) Arthritis Family History Medical History Relation Name Comments Cancer Father Stroke Mother Relation Name Status Comments Father Alive Mother Alive Social History Tobacco Use Types Packs/Day Years Used Date Smoking Tobacco: Former Smokeless Tobacco: Never Tobacco Cessation:Counseling Given: Not Answered Alcohol Use Standard Drinks/Week Comments Not Currently 0 (1 standard drink = 0.6 oz pur e alcohol) Personal Safety Answer Date Recorded Getting School Help Needed Not on file 03/03 Comments Unknown Sex and Gender Information Value Date Recorded Sex Assigned at Not on file Legal Sex Female 5:09 PM HOTEL OPERATION MANAGER Gender Identity Not on file Sexual Orientation Not on file Obstetrics History Last Filed Vital Signs Vital Sign Reading Time Taken Comments Blood Pressure 122/86 03/03/2023 4:39 PM HOTEL OPERATION MANAGER Pulse 105 03/03/2023 4:39 PM HOTEL OPERATION MANAGER Temperature 37.1 C (98.8 F) 03/03/2023 4:39 PM HOTEL OPERATION MANAGER Respiratory Rate 12 03/03/2023 4:39 PM HOTEL OPERATION MANAGER Oxygen Saturation 98% 03/03/2023 4:39 PM HOTEL OPERATION MANAGER Inhaled Oxygen Concentration - - Weight 62.6 kg (138 lb) 03/03/2023 4:39 PM HOTEL OPERATION MANAGER Height 160 cm (5' 3) 03/03/2023 4:39 PM HOTEL OPERATION MANAGER Body Mass Index 24.45 03/03/2023 4:39 PM HOTEL OPERATION MANAGER Plan of Treatment Health Maintenance Due Date Last Done Comments Breast Cancer Screening-Mammogram 1958 Colon Cancer Screening-Colonoscopy 1958 Depression Screening 1958 Fall Risk Assessment 1958 Hepatitis C Screening 1958 Osteoporosis Screening-Bone Density Scan 1958 DTaP/Tdap/Td Vaccine (1 - Tdap) 1969 Hepatitis B Screening 1976 Pneumococcal vaccine 65+ (1 of 2 - PCV) 1977 Zoster Vaccine (1 of 2) 1977 Covid-19 Vaccine (3 - Pfizer risk series) 08/03/2020 07/06/2020, 06/08/2020 Well Visit 65+ 08/06/2023 Influenza Vaccine (Season Ended) 2024 Insurance [employer] BLUE ACCESS OOS BLUE ACCESS OOS Care Teams Longitudinal Float Operator Relationship Specialty Start Date End Date Ramon Dooley MD [address] [place] [address] PCP - General 12/16/15
--- OUTSIDE RECORDS SUMMARY | 2024-08-18 21:44 | XMS_ITS | Referral Summary ---
Author Organization [facility] [address] Address [address] [place] [address] Phone Care Team Providers Care Entry Level Automotive Technician Name Role Phone Ramon Dooley MD Primary [...] pain 12/16/2015 Overview (06/21/2016): Low back pain Social History Tobacco Use Types Packs/Day Years [...] on file Legal Sex Female 5:09 PM VICE PRESIDENT EDUCATION Gender Identity Not on file Sexual Orientation Not on file Last Filed Vital Signs Vital Sign Reading Time Taken Comments Blood Pressure 122/86 03/03/2023 4:39 PM VICE PRESIDENT EDUCATION Pulse 105 03/03/2023 4:39 PM VICE PRESIDENT EDUCATION Temperature 37.1 C (98.8 F) 03/03/2023 4:39 PM VICE PRESIDENT EDUCATION Respiratory Rate 12 03/03/2023 4:39 PM VICE PRESIDENT EDUCATION Oxygen Saturation 98% 03/03/2023 4:39 PM VICE PRESIDENT EDUCATION Inhaled Oxygen Concentration - - Weight 62.6 kg (138 lb) 03/03/2023 4:39 PM VICE PRESIDENT EDUCATION Height 160 cm (5' 3) 03/03/2023 4:39 PM VICE PRESIDENT EDUCATION Body Mass Index 24.45 03/03/2023 4:39 PM VICE PRESIDENT EDUCATION Plan of Treatment Not on file Insurance BLUE ACCESS OOS [employer] ACCESS BLUE ACCESS OOS BLUE ACCESS OOS Care Teams Entry Level Automotive Technician Relationship Specialty Start Date End Date Ramon Dooley MD [address] [place] [address] PCP - General 12/16/15
--- OUTSIDE RECORDS SUMMARY | 2024-08-18 21:44 | XMS_ITS | Encounter Summary ---
Author Organization [facility] Address [address] [place] [address] Care Team Providers Care Art Glass Setter Name Role Phone Ramon Dooley MD Primary Care Provider + Encounter Details Date Type Department Care Team (Late st Contact Info) Description 02/18/2023 Telephone [facility] - Centralized Scheduling [facility] [place] [address] Kamar Olivia MD [address] [place] [address] Social History Tobacco Use Types Packs/Day Years Used Date Smoking Tobacco: Some Days Smokeless Tobacco: Never Alcohol Use Standard Drinks/Week Comments No 0 (1 standard drink = 0.6 oz pur e alcohol) PHQ-2 Answer Date Recorded PHQ2 TOTAL SCORE 0 05/14/2022 Comments No Sex and Gender Information Value Date Recorded Sex Assigned at Not on file Legal Sex Female 6:12 AM PAYROLL EXAMINER Gender Identity Not on file Sexual Orientation Not on file documented as of this encounter Miscellaneous Notes * Telephone Encounter - Linda Tapia - 02/18/2023 10:08 AM CST Current Provider name:SANTA Reason for call: Pt would like a call back regarding her recent lab results. She said could you please call from an identifiable number because if not it comes across her phone as a spam call. Patient Call Back number: [phone] OLL EXAMINER documented in this encounter Plan of Treatment Not on file documented as of this encounter Visit Diagnoses Not on filedocumented in this encounter Care Teams Art Glass Setter Relationship Specialty Start Date End Date Ramon Dooley MD [address] [address] PCP - General Family Medicine 08/27/22 documented as of this encounter
--- OUTSIDE RECORDS SUMMARY | 2024-08-18 21:44 | XMS_ITS | Encounter Summary ---
Author Organization [facility] Address [address] [facility] Attn: Epic Prelude ADT [place] [address] Care Team Providers Care Defensive Driving Instructor Name Role Phone Unavailable Primary Care Provider Unavailabl e Encounter Details Date Type Department Care Team (Late st Contact Info) Description 01/17/1992 Outpatient Historical Gama Silvestre MD NO ADDRESS ON FILE Social History Tobacco Use Types Packs/Day Years Used Date Smoking Tobacco: Never Assessed Comments Unknown Sex and Gender Information Value Date Recorded Sex Assigned at Not on file Legal Sex Female 4:31 AM AERIAL ADVERTISER Gender Identity Not on file Sexual Orientation Not on file documented as of this encounter Plan of Treatment Not on file documented as of this encounter Visit Diagnoses Not on filedocumented in this encounter
--- OUTSIDE RECORDS SUMMARY | 2024-08-18 21:44 | XMS_ITS | Encounter Summary ---
Author Organization [facility] Address [address] [place] [address] Care Team Providers Care Mill Stenciler Name Role Phone Ramon Dooley MD Primary Care Provider + Encounter Details Date Type Department Care Team (Late st Contact Info) Description 04/18/2022 Telephone [id number] [place] [address] Kamar Olivia MD [facility] [place] [address] Social History Tobacco Use Types Packs/Day Years Used Date Smoking Tobacco: Some Days Smokeless Tobacco: Never Alcohol Use Standard Drinks/Week Comments No 0 (1 standard drink = 0.6 oz pur e alcohol) Comments No Sex and Gender Information Value Date Recorded Sex Assigned at Not on file Legal Sex Female 6:12 AM RECOVERY RN Gender Identity Not on file Sexual Orientation Not on file documented as of this encounter Miscellaneous Notes * Telephone Encounter - Karel Butler - 04/18/2022 1:24 PM CST PT CALLED stating she had reached out yesterday re questions about lab orders and medication dosage. 1. Her meds said labs in 2 weeks but a call was placed to her phone's voicemail stating that she should get the labs done in 7 days. 2. The pharmacist advised that she not split a hydroxychloroquine tablet but her orders are to take1.5 tabs daily. Please reach out to clarify [phone] VERY RN documented in this encounter Plan of Treatment Not on file documented as of this encounter Visit Diagnoses Not on filedocumented in this encounter Care Teams Mill Stenciler Relationship Specialty Start Date End Date Ramon Dooley MD [address] [address] PCP - General Family Medicine 08/27/22 documented as of this encounter
[2024-08-18 21:49] VITALS: BP 144/87; PULSE 115; RESP 20; TEMP 36.7; O2SAT 92
[2024-08-18 23:09] VITALS: BP 134/88; PULSE 83; RESP 18; O2SAT 97
--- OUTSIDE RECORDS SUMMARY | 2024-08-18 23:46 | XMS_ITS | Clinical Summary ---
Author Organization [facility] Address [address] [facility] [place] [address] Care Team Providers Care Boiler House Mechanic Name Role Phone Ramon Dooley MD Primary Care Provider + Source Comments [facility],non-owned Affiliates and Associated Physician Practices is amultiple site organization consisting of ambulatory clinics and hospital sitesin [place], [place], [place] and [place]. This disclosure is being madepursuant to the Care Everywhere program and may not contain all information available regarding this patient. Last updated 17.[facility] Allergies No known active allergies Medications * [...] Immunizations Immunization Administration Dates Next Due Covid [employer] primary monoval ent 12+ yr 0.3mL Purple [...] on file Legal Sex Female 6:12 AM BANQUET PREP COOK Gender Identity Not on file Sexual Orientation Not on file Last Filed Vital Signs Vital Sign Reading Time Taken Comments Blood Pressure 128/82 08/27/2022 12:55 PM CDT Pulse 96 08/27/2022 12:55 PM CDT Temperature 36.5 C (97.7 F) 08/27/2022 12:55 PM CDT Respiratory Rate 20 03/15/2018 11:13 AM BANQUET PREP COOK Oxygen Saturation 98% 12/14/2021 10:13 AM CDT [...] HEPATITIS C ANTIBODY Routine 04/20/2022 4:05 PM BANQUET PREP COOK Rheumatoid arthritis involving multiple joints Sicca, unspecified type Long-term use of immunosuppressant medication from Last 3 Months or Most Recently Relevant to Health Maintenance Results * HEPATITIS C ANTIBODY (04/20/2022 4:05 PM BANQUET PREP COOK) Hepatitis C Antibody <0.1 0.0 - 0.9 s/co ratio [facility] INSURANCE BILL Comment: Negative: < 0.8 Indeterminate: 0.8 - 0.9 Positive: > 0.9 . HCV antibody alone does not differentiate between previous resolved infection and active infection. The CDC and current clinical guidelines recommend that a positive HCV antibody result be followed up with an HCV RNA test to support the diagnosis of acute HCV infection. [facility] offers Hepatitis C Virus (HCV) RNA, Diagnosis, NICK (021097) and Hepatitis C Virus (HCV) Antibody with reflex to Quantitative Real-time PCR ([id number]). Blood BLOOD SPECIMEN / Unknown 04/20/2022 4:05 PM BANQUET PREP COOK 04/20/2022 Narrative Resulting Agency Comment Lab Testing performed at: [facility] [address] [facility] [id number] Lenin Conner MD LAB - CHEMISTRY ORDERABLES Final Result [facility] INSURANCE BILL [address] [place] [address] from Last 3 Months or Most Recently Relevant to Health Maintenance Insurance [employer] Care Teams Boiler House Mechanic Relationship Specialty Start Date End Date Ramon Dooley MD [address] [place] [address] [address] [place] [address] PCP - General Family Medicine 08/27/22
--- OUTSIDE RECORDS SUMMARY | 2024-08-18 23:46 | XMS_ITS | Referral Summary ---
Author Organization [facility] [address] Address [address] [place] [address] Phone Care Team Providers Care Practicing Md Anesthesiologist Name Role Phone Ramon Dooley MD Primary [...] on file Legal Sex Female 5:09 PM CAPITAL EQUIPMENT SPECIALIST Gender Identity Not on file Sexual Orientation Not on file Last Filed Vital Signs Vital Sign Reading Time Taken Comments Blood Pressure 122/86 03/03/2023 4:39 PM CAPITAL EQUIPMENT SPECIALIST Pulse 105 03/03/2023 4:39 PM CAPITAL EQUIPMENT SPECIALIST Temperature 37.1 C (98.8 F) 03/03/2023 4:39 PM CAPITAL EQUIPMENT SPECIALIST Respiratory Rate 12 03/03/2023 4:39 PM CAPITAL EQUIPMENT SPECIALIST Oxygen Saturation 98% 03/03/2023 4:39 PM CAPITAL EQUIPMENT SPECIALIST Inhaled Oxygen Concentration - - Weight 62.6 kg (138 lb) 03/03/2023 4:39 PM CAPITAL EQUIPMENT SPECIALIST Height 160 cm (5' 3) 03/03/2023 4:39 PM CAPITAL EQUIPMENT SPECIALIST Body Mass Index 24.45 03/03/2023 4:39 PM CAPITAL EQUIPMENT SPECIALIST Plan of Treatment Not on file Insurance BLUE ACCESS OOS ANTHEM ACCESS BLUE ACCESS OOS BLUE ACCESS OOS Care Teams Practicing Md Anesthesiologist Relationship Specialty Start Date End Date Ramon Dooley MD [address] [place] [address] PCP - General 12/16/15
--- OUTSIDE RECORDS SUMMARY | 2024-08-18 23:46 | XMS_ITS | Clinical Summary ---
Author Organization [facility] Address [address] Attn: Epic Prelude ADT VIRY POPE JOSE [address] Care Team Providers Care Signal Integrity Engineer Name Role Phone Unavailable Primary Care Provider Unavailabl e Social History Tobacco Use Types Packs/Day Years Used Date Smoking Tobacco: Never Assessed Comments Unknown Sex and Gender Information Value Date Recorded Sex Assigned at Not on file Legal Sex Female 4:31 AM PROFESSOR COMPUTER SCIENCE Gender Identity Not on file Sexual Orientation [...]
--- OUTSIDE RECORDS SUMMARY | 2024-08-18 23:46 | XMS_ITS | Encounter Summary ---
Author Organization [facility] Address [address] [place] [address] Care Team Providers Care Racebook Writer Name Role Phone Ramon Dooley MD Primary Care Provider + Reason for Visit * Reason Onset Date Comments Order 08/14/2022 Encounter Details Date Type Department Care Team (Late st Contact Info) Description 08/14/2022 Telephone [facility] - Centralized Scheduling [address] [place] [address] Kamar Olivia MD [address] [facility] [address] Order Social History Tobacco Use Types Packs/Day Years Used Date Smoking Tobacco: Some Days Smokeless Tobacco: Never Alcohol Use Standard Drinks/Week Comments No 0 (1 standard drink = 0.6 oz pur e alcohol) PHQ-2 Answer Date Recorded PHQ2 TOTAL SCORE 0 05/14/2022 Comments No Sex and Gender Information Value Date Recorded Sex Assigned at Not on file 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 Please advise Shefali Oneida [phone] Magi Arellano Spoke with Patient. She has had on-going issues with transportation. NOV 08/27/22 at 1p. Ideally, she realizes that she should have XRs and labs completed prior to this appointment, however, transportation is an issue for her. She has yet to obtain those previous orders. Her question is would it be ok to get these after her 1pm appointment downstairs at [facility] to ensure they are completed and we recei ve the results (which has been a problem in the past with [facility], specifically.) Secondly, she has failed to ask why she was not continued on her infusion, Orencia? She feels like the pills (SSZ, HCQ and diclofenac) are working as well and doesn't understand why you chose to prescribe the medications over the infusion? Call back # [phone], she works from home. documented in this encounter Plan of Treatment Not on file documented as of this encounter Visit Diagnoses Not on filedocumented in this encounter Care Teams Racebook Writer Relationship Specialty Start Date End Date Ramon Dooley MD [address] [place] [id number] PCP - General Family Medicine 08/27/22 documented as of this encounter
--- OUTSIDE RECORDS SUMMARY | 2024-08-18 23:46 | XMS_ITS | Encounter Summary ---
Author Organization [facility] Address [address] [place] [address] Care Team Providers Care Front Desk Specialist Name Role Phone Ramon Dooley MD Primary Care Provider + Encounter Details Date Type Department Care Team (Late st Contact Info) Description 02/18/2023 Telephone [facility] - Centralized Scheduling [facility] [place] [address] Kamar Olivia MD [address] [place] [id number] Social History Tobacco Use Types Packs/Day Years Used Date Smoking Tobacco: Some Days Smokeless Tobacco: Never Alcohol Use Standard Drinks/Week Comments No 0 (1 standard drink = 0.6 oz pur e alcohol) PHQ-2 Answer Date Recorded PHQ2 TOTAL SCORE 0 05/14/2022 Comments No Sex and Gender Information Value Date Recorded Sex Assigned at Not on file 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 Patient Call Back number: [phone] UNTANT CLERK documented in this encounter Plan of Treatment Not on file documented as of this encounter Visit Diagnoses Not on filedocumented in this encounter Care Teams Front Desk Specialist Relationship Specialty Start Date End Date Ramon Dooley MD [address] [address] PCP - General Family Medicine 08/27/22 documented as of this encounter
--- OUTSIDE RECORDS SUMMARY | 2024-08-18 23:46 | XMS_ITS | Encounter Summary ---
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
--- OUTSIDE RECORDS SUMMARY | 2024-08-18 23:46 | XMS_ITS | Clinical Summary ---
Author Organization [facility] [address] Address [address] [place] [address] Phone Care Team Providers Care Microbiology Director Name Role Phone Ramon Dooley MD Primary [...] on file Legal Sex Female 5:09 PM WAX BLENDER Gender Identity Not on file Sexual Orientation Not on file Obstetrics History Last Filed Vital Signs Vital Sign Reading Time Taken Comments Blood Pressure 122/86 03/03/2023 4:39 PM WAX BLENDER Pulse 105 03/03/2023 4:39 PM WAX BLENDER Temperature 37.1 C (98.8 F) 03/03/2023 4:39 PM WAX BLENDER Respiratory Rate 12 03/03/2023 4:39 PM WAX BLENDER Oxygen Saturation 98% 03/03/2023 4:39 PM WAX BLENDER Inhaled Oxygen Concentration - - Weight 62.6 kg (138 lb) 03/03/2023 4:39 PM WAX BLENDER Height 160 cm (5' 3) 03/03/2023 4:39 PM WAX BLENDER Body Mass Index 24.45 03/03/2023 4:39 PM WAX BLENDER Plan of Treatment Health Maintenance Due Date [...] 08/06/2023 Influenza Vaccine (Season Ended) 2024 Insurance [employer] BLUE ACCESS OOS BLUE ACCESS OOS Care Teams Microbiology Director Relationship Specialty Start Date End Date Ramon Dooley MD [address] [place] [address] PCP - General 12/16/15
--- OUTSIDE RECORDS SUMMARY | 2024-08-18 23:46 | XMS_ITS | Encounter Summary ---
Author Organization [facility] Address [address] [place] [address] Care Team Providers Care Workforce Investment Act Career Manager Name Role Phone Ramon Dooley MD Primary Care Provider + Encounter Details Date Type Department Care Team (Late st Contact Info) Description 04/18/2022 Telephone [id number] [place] [address] Kamar Olivia MD 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 Please reach out to clarify [phone] [place] COVERAGE MERCHANDISER documented in this encounter Plan of Treatment Not on file documented as of this encounter Visit Diagnoses Not on filedocumented in this encounter Care Teams Workforce Investment Act Career Manager Relationship Specialty Start Date End Date Ramon Dooley MD [address] [address] PCP - General Family Medicine 08/27/22 documented as of this encounter
[2024-08-19 00:11] VITALS: BP 121/90; PULSE 73; RESP 18; O2SAT 100
--- NOTE | 2024-08-19 00:13 | ED_ITS ---
HPI - Wound/Laceration General Chief Complaint: Wound/Laceration Stated Complaint: lac to left palm Time Seen by Provider: 08/18/24 23:05 Source: patient Mode of arrival: ambulatory Limitations: no limitations History of Present Illness HPI narrative: Patient is a 64 y/o female who presents the ED with report of a laceration to her left palm. Patient reports she was caring in a heavy bag of groceries into her house when her flip-flop caught on the edge of the concrete and she fell. She attempted to catch herself with her left arm, but fell into 1 have her potted plants which contained a glass watering globe. The glass broke and she sustained a laceration to her left palm. Sustained small abrasion to her left knee, but denies pain with this. Has been ambulatory since the fall. Denied head injury or LOC. Denies any other injuries. She is not on any blood thinners. Tetanus unknown. Related Data Allergies Allergy/AdvReac Type Severity Reaction Status Date / Time morphine Allergy Intermediate Vomiting Verified 05/14/24 13:29 Review of Systems Review of Systems: All systems reviewed & are unremarkable except as noted in HPI. All systems reviewed & are unremarkable except as noted in HPI and below PMFSH Past Medical History Medical History Hx pulmonary embolism 12/04 Family History Family History Father Lymphoma Sibling Breast cancer Mother Cerebrovascular accident Social History Social History Smoking status: Never smoker Second hand tobacco smoke exposure: No Alcohol intake: never Substance use: never Substance use type: does not use Do You Feel Safe in your Home?: Yes Lack of Transportation: No Lack of Food: Never True Current Housing: I Have Housing Concerned About Future Housing: No Difficulty Paying Gas/Electric Bills: Decline to Answer Difficulty Paying for Meds: No Currently Unemployed: No Education: Associate Degree Difficulty w/ Childcare or Family Care: No Living arrangements: alone Occupation/Education: occupation Additional occupation/education comments: Customer Service Gender identity (if verbalized by the patient): Female Sexual Orientation (if Verbalized by the Patient): Straight or Heterosexual Spiritual care concerns: No Agree to blood products: Yes Exam Narrative: GENERAL: Well appearing, well-nourished, non-toxic, in no acute distress. HEAD: Normocephalic, atraumatic. RESPIRATORY: Airway patent, respirations nonlabored. CARDIOVASCULAR: Regular rate and rhythm. Radial pulses strong and easily palpable. MUSCULOSKELETAL: Moves all extremities. No gross deformities. Full flexion and extension range of motion of left fingers and wrist. SKIN: Warm, dry, normal color. Approximately 6 cm laceration to lateral edge of left palm with small area of skin flap/avulsion, otherwise well approximated. No significant active bleeding. Focal tenderness to palpation. NEURO: A&O X3. Speech clear. Cranial nerves II-XII grossly intact. Steady gait. No ataxic movements. PSYCHIATRIC: Appropriate mood and affect. Normal interaction. Course Vital Signs Vital signs: Vital Signs Temperature 98.0 F 08/18/24 21:49 Pulse Rate 115 H 08/18/24 21:49 Respiratory Rate 20 08/18/24 21:49 Blood Pressure 144/87 H 08/18/24 21:49 Pulse Oximetry 92 08/18/24 21:49 Oxygen Delivery Room Air 08/18/24 21:49 Temperature 98.0 F 08/18/24 21:49 Pulse Rate 73 08/19/24 00:11 Respiratory Rate 18 08/19/24 00:11 Blood Pressure 121/90 08/19/24 00:11 Pulse Oximetry 100 08/19/24 00:11 Oxygen Delivery Room Air 08/18/24 21:49 Procedures Laceration Laceration 1: Date: 08/19/24 Time: 00:40 Site: hand Side (If applicable): left Size (cm): 6 Description: linear Depth: simple, single layer Local Anesthetic: lidocaine 1% Amount of anesthesia used (mL): 8 Pre-repair: wound explored, irrigated and irrigated extensively ====== Skin Level ====== Skin layer closed with: nylon Size (cm): 4-0 Number of sutures: 9 Technique: simple, interrupted ====== Subcutaneous Layer ====== ====== Muscle Layer ====== ====== Tendon Layer ====== MDM - Wound/Laceration MDM Narrative Medical decision making narrative: X-ray of left hand without evidence of fracture or foreign body. Tetanus was updated in the ED. Laceration was thoroughly irrigated, small pieces of di rt/debris were removed. No glass FB seen within laceration. Laceration was otherwise repaired without complications. Patient will be discharged. Discussed wound care instructions and reasons to return. Patient is in agreement with plan. Discharged in stable condition. Medical Records Attestation: I reviewed the patient's medical records. Imaging Data Attestation: I personally reviewed and interpreted this imaging study as follows: Radiologist's impression: ITS Impressions Hand X-Ray 08/18/24 22:57 IMPRESSION: No acute osseous abnormality left hand. Polyarticular osteoarthritic changes. Discharge Plan Discharge Clinical Impression: Fall from ground level Laceration of left hand Qualifiers: Encounter type: initial encounter Foreign body presence: without foreign body Qualified Code(s): S61.412A - Laceration without foreign body of left hand, initial encounter Patient Disposition: Home Condition: Stable Instructions: Antibiotic Form, Care For Your Stitches (ED), Laceration (ED) Additional Instructions: Recommend Tylenol and Ibuprofen as needed for pain. Return to the ED or visit an urgent care or your PCP for follow-up and wound check/suture removal in 10 to 14 days. Keep the wound as dry as possible for 24 hours. You may remove the bandage after 24 hours and wash with simple soap and water, but do not scrub. Re-bandage if needed or working with hands. Return to the ED if you experience uncontrolled bleeding, fever, chills, pus-like drainage, or redness/swelling/warmth surrounding the wound, as these could be signs of an infection. Patient Language: Spanish Prescriptions: No Action hydrocodone-acetaminophen 5-325 mg tablet 1 tablet PO Q6H PRN (Reason: pain) Qty: 30 0RF cyclobenzaprine 5 mg tablet 5 mg PO TID PRN (Reason: muscle spasm) Qty: 20 0RF Follow-up/Referrals: Ramon Dooley MD [Primary Care Provider] - Time of Disposition: 00:58
[2024-08-19] MEDS: TETANUS,DIPHTHERIA,AC PERTUSSIS ADULT (0.5 ML) BOOSTRIX IM (00:16)
[2024-08-19] MEDS: HYDROcodone/acetaminophen (*CRX) 5-325 MG TABLET 1 TAB PO (00:16)
[2024-08-19 01:38] VITALS: BP 136/76; PULSE 83; RESP 18; O2SAT 99
== END 2024-08-19 01:39 | disposition home or self-care (01) ==
PROVIDERS: Emergency Provider Physician Assistant; PCP Family Medicine Adolescent Medicine
DX: S61.412A Laceration without foreign body of left hand, initial encounter (principal); Z23 Encounter for immunization; Z86.711 Personal history of pulmonary embolism; W01.110A Fall on same level from slipping, tripping and stumbling with subsequent striking against sharp glass, initial encounter
CPT/HCPCS: 12002; 73130; 90471; 90715; 99283; A9270